=== PATIENT | male | born 1980 | race Caucasian/White ===

== ENCOUNTER 2024-12-20 12:17 | Outpatient (CLI) | payer OTHER, SELFPAY ==
--- NOTE | ~2024-12-20 | XR_ITS ---
EXAMINATION: XR UGI wo kub DATE: 12/20/2024 13:03 INDICATION: Chronic abdominal pain and bloating TECHNIQUE: The patient drank thick barium, gas-producing crystals, and thin barium. A total of 634 fluoroscopic images of the esophagus, stomach, and proximal small bowel were obtained. Fluoroscopy exposure time was 1.6 minutes. Total DAP was 25.585 mGycm^2 COMPARISON: None. FINDINGS: The esophagus is normal without mass or stricture. Esophageal motility is normal. There is no hiatal hernia. There was no gastroesophageal reflux with provocative maneuvers. There appears to be narrowing of the lumen along the proximal body of the stomach which would be consistent with reported history of prior sleeve gastrectomy. The proximal small bowel is normal. There was a single spontaneous episode of gastroesophageal reflux of a minimal amount of contrast into the distalmost esophagus. Further reflux was unable to be elicited with provocative maneuvers. IMPRESSION: 1. Narrowed lumen of the gastric body consistent with reported history of sleeve gastrectomy. No hiatal hernia. 2. Single spontaneous episode of gastroesophageal reflux of only minimal amount of contrast into the distalmost esophagus. No further reflux able to be elicited with provocative maneuvers. Reviewed, dictated and finalized at location A. IMPRESSION: 1. Narrowed lumen of the gastric body consistent with reported history of sleev e gastrectomy. No hiatal hernia. 2. Single spontaneous episode of gastroesophageal reflux of only minimal amount of contrast into the distalmost esophagus. No further reflux able to be elicit ed with provocative maneuvers.
--- OUTSIDE RECORDS SUMMARY | 2024-12-20 12:23 | XMS_ITS | Clinical Summary ---
Author Organization [facility] Address [address] [place] [address] Care Team Providers Care Communications Field Technician Name Role Phone Ev Parsons MD Primary Care Provider [phone]- [phone] Allergies Active Allergy Reactions Criticality Noted Date Comments Prednisone Rash Low 12/11/2020 Social History Tobacco Use Types Packs/Day Years Used Date Smoking Tobacco: Never Assessed Sex and Gender Information Value Date Recorded Sex Assigned at Not on file Legal Sex Male 7:00 AM CDT Gender Identity Not on file Sexual Orientation Not on file Last Filed Vital Signs Vital Sign Reading Time Taken Comments Blood Pressure 140/87 12/11/2020 11:26 AM CDT Pulse 95 12/11/2020 7:05 AM CDT Temperature 36.3 C (97.4 F) 12/11/2020 7:05 AM CDT Respiratory Rate 16 12/11/2020 7:05 AM CDT Oxygen Saturation 96% 12/11/2020 11:25 AM CDT Inhaled Oxygen Concentration - - Weight 145.2 kg (320 lb) 12/11/2020 7:05 AM CDT Height 185.4 cm (6' 1) 12/11/2020 7:05 AM CDT Body Mass Index 42.22 12/11/2020 7:05 AM CDT Plan of Treatment Health Maintenance Due Date Last Done Comments Annual Physical 1985 Hepatitis C 01/02/2000 DTaP, Tdap and Td Vaccines ( 1 - Tdap) 2001 Hepatitis B Vaccines (1 of 3 - 19+ 3-dose series) 2001 HPV Vaccines (1 - 3-dose SCD M series) 2009 COVID-19 Vaccine (2023-2 5 season) 2024 Meningococcal B Vaccine Aged Out No l onger eligible based on patient's age to complete this topic Meningococcal Vaccine Aged Out No ching alina eligible based on patient's age to complete this topic Pneumococcal Vaccine: Pediat rics (0 to 5 Years) and At-Risk Patients (6 to 49 Years) Aged Out No longer eligible b ased on patient's age to complete this topic RSV Immunizations Under 20 Months Aged Out No longer eligible based on patient's age to complete this topic Insurance [facility] Care Teams Communications Field Technician Relationship Specialty Start Date End Date Ev Parsons MD [address] [facility] [address] [place] [address] PCP - General FAMILY PRACTICE 12/11/20
--- OUTSIDE RECORDS SUMMARY | 2024-12-20 12:23 | XMS_ITS | Clinical Summary ---
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 Gender Identity Not on file Sexual Orientation Not on file Plan of Treatment Health Maintenance Due Date Last Done Comments Hepatitis C Virus (HCV) Screening 1982 TdaP Immunization 1982 Hepatitis B Immunization (1 of 3 - 19+ 3-dose series) 2001 Human Papillomavirus (HPV) Immunization (1 - 3-dose SCDM series) 2009 SARS-COV-2 Immunization (2023- season) 2024 Influenza Immunization (#1) 2025 Respiratory Syncytial Virus (RSV) Immunization (Adult) (1 - 1-dose 75+ series) 2057 Meningococcal Immunization (ACWY) Aged Out No longer eligible based on patient's age to complete this topic Pneumococcal Immunization Combined Aged Out No longer eligible based on patient's age to complete this topic Rotavirus Immunization Aged Out No lo nger eligible based on patient's age to complete this topic
--- OUTSIDE RECORDS SUMMARY | 2024-12-20 12:23 | XMS_ITS | Clinical Summary ---
Author Organization [facility] Address [address] [place] [address] Care Team Providers Care Clean Out Driller Helper Name Role Phone Ev Parsons MD Primary Care Provider Allergies Active Allergy Reactions Criticality Noted Date Comments Prednisone Itching Low 12/13/2020 Medications dextroamphetamin e-amphetamine (ADDERALL) 15 mg tablet Take 15 mg by mouth 2 (two) times a day 12/11/2020 Active FLUoxetine (PROzac) 20 mg capsule Take by mouth daily 12/19/2020 Active OXcarbazepine (TRILEPTAL) 300 mg tablet Take 300 mg by mouth 2 (two) times a day 11/18/2020 Active Active Problems No known active problems Surgical History Surgery Date Site/Laterality Comments SLEEVE GASTROPLASTY 05/04/2018 - 05/03/2019 Medical History Medical History Date Comments Hypertension Erectile dysfunction Diabetes mellitus (HCC) Anxiety Depression Family History Medical History Relation Name Comments Cancer Father Diabetes Mother Relation Name Status Comments Father Mother Social History Tobacco Use Types Packs/Day Years Used Date Smoking Tobacco: Every Day Cigarettes Smokeless Tobacco: Never Personal Safety Answer Date Recorded Getting School Help Needed Not on file 06/27 Sex and Gender Information Value Date Recorded Sex Assigned at Not on file 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 Gender Identity Male 12/24/2020 9:26 AM CDT Sexual Orientation Straight 12/24/2020 9: 26 AM CDT Obstetrics History Last Filed Vital Signs Vital Sign Reading Time Taken Comments Blood Pressure 140/93 12/26/2020 11:06 AM CDT Pulse 84 12/26/2020 11:06 AM CDT Temperature 36 C (96.8 F) 12/26/2020 11:06 AM CDT Respiratory Rate 16 12/14/2020 1:50 AM CDT Oxygen Saturation 100% 12/14/2020 1:50 AM CDT Inhaled Oxygen Concentration - - Weight 145.2 kg (320 lb) 12/26/2020 11:06 AM CDT Height 185.4 cm (6' 1) 12/26/2020 11:06 AM CDT Body Mass Index 42.22 12/26/2020 11:06 AM CDT Plan of Treatment Not on file Insurance [employer] OPEN [employer] Care Teams Clean Out Driller Helper Relationship Specialty Start Date End Date Ev Parsons MD [address] [facility] [address] [place] [address] PCP - General Family Medicine 12/13/20
--- OUTSIDE RECORDS SUMMARY | 2024-12-20 12:23 | XMS_ITS | Clinical Summary ---
Author Organization [facility] Address [address] [place] [address] Care Team Providers Care Veterinarian Helper Name Role Phone Ev Parsons MD Primary Care Provider + Source Comments [facility],non-owned Affiliates and Associated Physician Practices is amultiple site organization consisting of ambulatory clinics and hospital sitesin [place], [place]. This disclosure is being madepursuant to the Care Everywhere program and may not contain all information available regarding this patient. Last updated 18.[facility] Allergies No known active allergies Medications * Be aware that medications may not be up to date on this document. Alwaysverify current medications with the patient. lisinopril-hydr oCHLOROthiazide (PRINZIDE; ZESTORETIC) 20-12.5 MG tablet Take 1 Tab by mouth once daily Active atomoxetine (STRATTERA) 80 MG capsule Take 80 mg by mouth every morning Active FLUoxetine (PROZAC) 20 MG capsule Take 40 mg by mouth once daily Active testosterone (ANDROGEL;TESTI M) 50 MG/5GM (1%) gel Use 1 Packet as instructed once daily Apply to clean, dry, intact skin of the shoulders and upper arms. Active multivitamin daily (THERAGRAN) tablet Take 1 Tab by mouth daily with food Active probiotic (PROBIOTIC) CAPS capsule Take 1 Cap by mouth once daily Active Cholecalciferol (VITAMIN D PO) Take 1 Tab by mouth once daily Patient unsure of strength Active ibuprofen (MOTRIN) 200 MG tablet Take 200 mg by mouth every 6 hours as needed for Pain Active Active Problems Problem Noted Date Diagnosed Date Chest pain 03/11/2016 Elevated LFTs 03/11/2016 Social History Tobacco Use Types Packs/Day Years Used Date Smoking Tobacco: Never Alcohol Use Standard Drinks/Week Comments No 0 (1 standard drink = 0.6 oz pur e alcohol) Sex and Gender Information Value Date Recorded Sex Assigned at Not on file 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 Gender Identity Not on file Sexual Orientation Not on file Last Filed Vital Signs Vital Sign Reading Time Taken Comments Blood Pressure 138/83 03/13/2016 8:33 PM INTERMEDIATE MANAGER Pulse 81 03/13/2016 8:33 PM INTERMEDIATE MANAGER Temperature 37.1 C (98.7 F) 03/13/2016 8:33 PM INTERMEDIATE MANAGER Respiratory Rate 18 03/13/2016 8:33 PM INTERMEDIATE MANAGER Oxygen Saturation 97% 03/13/2016 8:33 PM INTERMEDIATE MANAGER Inhaled Oxygen Concentration - - Weight 113.4 kg (250 lb) 03/11/2016 9:38 AM INTERMEDIATE MANAGER Height 185.4 cm (6' 1) 03/11/2016 10:08 AM INTERMEDIATE MANAGER Body Mass Index 32.98 03/11/2016 9:38 AM INTERMEDIATE MANAGER Plan of Treatment Health Maintenance Due Date Last Done Comments LIPID TESTING 1982 HIV SCREENING 1997 HEPATITIS C SCREENING 12/28/1999 DTAP/TDAP/TD VACCINES (1 - Tdap) 2001 HEPATITIS B VACCINE (1 of 3 - 19+ 3-dose series) 2001 HPV VACCINE (1 - 3-dose SCDM series) 2009 COVID-19 VACCINE (1 - 2023-2 5 season) 2024 DEPRESSION SCREENING 05/04/2024 INFLUENZA VACCINE (#1) 2025 ZOSTER VACCINE (1 of 2) 01/02/2032 HIB VACCINE Aged Out No longer eligi ble based on patient's age to complete this topic MENINGOCOCCAL (Group B) VACC INE SHARED DECISION-MAKING Aged Out No longer eligibl e based on patient's age to complete this topic MENINGOCOCCAL GROUPS A/C/Y/W VACCINE Aged Out No longer eligible b ased on patient's age to complete this topic PNEUMOCOCCAL VACCINE Aged Out No long er eligible based on patient's age to complete this topic Insurance [facility] Advance Directives * Full Code (Latest Code Status on File) Date Activated Date Inactivated Comments 03/11/2016 1:37 PM 03/14/2016 12:00 AM Care Teams Veterinarian Helper Relationship Specialty Start Date End Date Ev Parsons MD [address] [place] [address] PCP - General Family Medicine 03/11/16
== END 2024-12-20 12:18 | disposition home or self-care (01) ==
PROVIDERS: PCP Physician Assistant; Visit Provider Physician Assistant
DX: K31.2 Hourglass stricture and stenosis of stomach (principal); K21.9 Gastro-esophageal reflux disease without esophagitis
CPT/HCPCS: 74240